=== PATIENT | female | born 1980 | race Caucasian/White ===

== ENCOUNTER 2018-11-21 15:20 | Emergency (ER) | payer MEDICAID, OTHER ==
[~2018-11-21] VITALS: Ht 165.1 cm; Wt 89.3 kg
[~2018-11-21 15:20] MED LIST: CEPH-443 PO; IBUP-1541 PO
[2018-11-21 15:24] VITALS: BP 115/59; PULSE 62; RESP 17; Ht 165.1 cm; Wt 89.3 kg
== END 2018-11-21 17:29 | disposition home or self-care (01) ==
LOC: FTE 15:20
DX: N39.0 Urinary tract infection, site not specified (principal)
CPT/HCPCS: 81001; 84703; Z7502; 99283